=== PATIENT | female | born 1980 | race Caucasian/White ===

== ENCOUNTER 2017-08-24 22:04 | Emergency (ER) | payer OTHER ==
[~2017-08-24] VITALS: Ht 165.1 cm; Wt 99.8 kg
[~2017-08-24 22:04] MED LIST: FLEXERIL PO; IBUPROFEN 800800 M1 PO; NAPROSYN500 MG PO; NORCO 5-325 TA1 EACH PO; ROBAXIN 750 MG750 MG PO
[2017-08-24 22:22] LABS: ABSOLUTE BASOPHILS 0.1 thou/uL (0.0-0.2); ABSOLUTE EOSINOPHILS 0.2 thou/uL (0.0-0.7); ABSOLUTE LYMPHOCYTES 2.9 thou/uL (0.8-5.3); ABSOLUTE NEUTROPHILS 6.6 thou/uL (1.6-8.1); BASOPHILS 0.6 %; EOSINOPHILS 2.3 %; HEMATOCRIT 38.1 % (37.0-47.0); HEMOGLOBIN 12.6 gm/dL (12.0-15.0); LYMPHOCYTES 27.1 %; MCH 28.5 pg (26.0-34.0); MCHC 33.1 g/dL (28.0-37.0); MPV 6.3 fl. (7.2-11.1); NUCLEATED RBCS 0 /100WBC; PLATELET COUNT* 414 thou/uL (150-400); RBC 4.42 mil/uL (4.20-5.00); RDW-CV 14.6 % (10.5-14.5); WBC 10.8 thou/uL (4.0-11.0)
[2017-08-24 22:42] LABS: ANION GAP 9 mmol/L (7-16); BUN 12 mg/dL (7-18); CALCIUM 8.9 mg/dL (8.5-10.1); CHLORIDE 102 mmol/L (98-107); CO2 27 mmol/L (21-32); CREATININE 0.8 mg/dL (0.6-1.3); GLUCOSE 109 mg/dL (70-99); POTASSIUM 3.7 mmol/L (3.5-5.1); SODIUM 138 mmol/L (136-145)
[2017-08-24 22:55] LABS: ALBUMIN 3.6 g/dL (3.4-5.0); ALKALINE PHOSPHATASE 88 U/L (46-116); LIPASE 101 U/L (73-393); NT-PRO BRAIN NAT PEPTIDE 15 pg/mL (<300); SGOT 14 U/L (15-37); SGPT 20 U/L (30-65); TOTAL BILIRUBIN 0.2 mg/dL (<0.1-1.0); TOTAL PROTEIN 7.9 g/dL (6.4-8.2); TROPONIN-I LEVEL <0.06 ng/mL (<0.06)
[2017-08-24] MEDS ORDERED: CARAFATE 1 GM TA1 GM PO (23:25)
[2017-08-24 23:48] VITALS: BP 114/64
--- NOTE | 2017-08-25 12:39 | EKG ---
[place] [address] ELECTROCARDIOGRAM REPORT Name: MARGARITA CARABALLO Room: [facility] Michell#: [id number] Admission: 08/24/17 Attend Phys: Discharge: 08/24/17 Date of : 82 Report #: [id number] THIS REPORT FOR: //name// [facility] ED Test Date: 2017-08-24 Test Time: 22:09:44 Pat Name: MARGARITA CARABALLO Department: Room: Gender: F [employer] Lead: YOUSUF : 1980 Requested By: Syl Connolly Order Number: [id number] MD: Lazaro Agarwal Measurements Intervals [place] Rate: 89 P: 4 FL: 144 QRS: 46 QRSD: 92 T: 24 QT: 363 QTc: 442 Interpretive Statements Sinus rhythm No previous ECG available for comparison Electronically Signed On 08-25-2017 12:39:13 [employer] by Lazaro Agarwal [email or web address] <ELECTRONICALLY SIGNED> By: Lazaro Agarwal MD, [facility] 08/25/17 1239 2209 [id number] Lazaro Agarwal MD, FACC /EPI
== END 2017-08-24 23:48 | disposition home or self-care (01) ==
LOC: M.ERS 22:04
PROVIDERS: Emergency Medicine
DX: R07.89 Other chest pain (principal); K21.9 Gastro-esophageal reflux disease without esophagitis; F17.210 Nicotine dependence, cigarettes, uncomplicated; Z90.49 Acquired absence of other specified parts of digestive tract; Z88.8 Allergy status to other drugs, medicaments and biological substances